=== PATIENT | male | born 1940 | race Caucasian/White ===

== ENCOUNTER 2017-08-10 09:23 | Day surgery (SDC) | payer MEDICARE, OTHER ==
[~2017-08-10] VITALS: Ht 175.3 cm; Wt 117.5 kg
[~2017-08-10 09:23] MED LIST: ASPIRIN EC81 MG PO; AZACITIDINE IV; CARVEDILOL12.5 MG PO; COUMADIN2.5 MG PO; COUMADIN5 MG PO; FISH OIL 1,0001 EAC2 PO; FUROSEMIDE20 MG PO; FUROSEMIDE40 MG PO; GEMFIBROZIL600 MG PO; GLIPIZIDE XL10 MG PO; GLIPIZIDE10 MG PO; GLIPIZIDE5 MG PO; GLUCOPHAGE500 MG PO; HUMULIN N100 UNIT/1 SUB-Q; HUMULIN R100 UNIT/1 INJ; LOSARTAN POTASS50 MG PO; MULTIVITAMINS1 EAC7 PO; NORCO 5-325 TA1 EACH PO; NOVOLIN N100 UNIT/1 SUB-Q; OSTEO BI-FLEX1 EAC2 PO; PRILOSEC OTC20 MG PO; VITAMIN E100 UNI3 PO; WARFARIN SODIU2.5 MG PO; ZOFRAN ODT4 MG PO
--- NOTE | 2017-08-12 12:58 | OR ---
[facility] [address] [place] [address] Signed DATE OF OPERATION: 08/10/2017 SURGEON: Jayce Robertson MD PROCEDURE: Left posterior iliac crest bone marrow biopsy and aspirate. DESCRIPTION OF PROCEDURE: After explaining the risks and benefits of bone marrow biopsy and aspiration under conscious sedation and obtaining informed written consent, the patient was taken to a private area of the postanesthesia recovery unit, where a time-out was taken and the patient and the procedure were correctly identified. He was placed in the prone position. Conscious sedation was supplied by OWEN Guzman with 100 mcg of intravenous fentanyl and 4 mg of intravenous midazolam. The left posterior iliac crest was prepped and draped in the usual sterile manner. Local anesthesia was obtained with 1 mL of 1% lidocaine and the left posterior iliac crest bone marrow biopsy and aspirate were obtained without adverse affects. Jayce Robertson MD RCQ/MODL /[id number] Electronically Signed By: JAYCE ROBERTSON MD 08/12/17 1258 PATIENT NAME: MAILE PARISI OPERATIVE REPORT DATE OF : 44 PHYSICIAN: JAYCE ROBERTSON MD REPORT #: [id number] REPORT IS CONFIDENTIAL AND NOT TO BE RELEASED WITHOUT AUTHORIZATION
== END 2017-08-10 13:20 | disposition home or self-care (01) ==
LOC: DS 09:23 → OPS 09:23 → DS 12:00 → OPS 12:00
PROVIDERS: Specialist
PROC: 07DR3ZX Extraction of Iliac Bone Marrow, Percutaneous Approach, Diagnostic (ICD-10-PCS; principal; 2017-08-10 12:00)
DX: D46.9 Myelodysplastic syndrome, unspecified (principal); D64.9 Anemia, unspecified; D69.6 Thrombocytopenia, unspecified; D75.9 Disease of blood and blood-forming organs, unspecified; I48.91 Unspecified atrial fibrillation; E11.9 Type 2 diabetes mellitus without complications; E78.00 Pure hypercholesterolemia, unspecified; I11.0 Hypertensive heart disease with heart failure; I50.9 Heart failure, unspecified; I35.1 Nonrheumatic aortic (valve) insufficiency; I34.0 Nonrheumatic mitral (valve) insufficiency; I36.1 Nonrheumatic tricuspid (valve) insufficiency; G47.33 Obstructive sleep apnea (adult) (pediatric); J44.9 Chronic obstructive pulmonary disease, unspecified; M19.90 Unspecified osteoarthritis, unspecified site; Z93.0 Tracheostomy status; Z79.899 Other long term (current) drug therapy
CPT/HCPCS: 36415; 85025; 99152; 99153; J2250; J3010; J7120

== ENCOUNTER 2017-11-02 10:56 | Day surgery (SDC) | payer MEDICARE, OTHER ==
[~2017-11-02] VITALS: Ht 175.3 cm; Wt 118.4 kg
[~2017-11-02 10:56] MED LIST changes: -GLIPIZIDE5 MG PO
--- NOTE | 2017-11-02 11:53 | NUR ---
comfortable,iv patent. update given.
--- NOTE | 2017-11-02 12:56 | NUR ---
11/02/17 Ja6 Samantha Newby 1250-PATIENT IN PACU ON 5L 95% NC LAYING PRONE. AROUSES TO VERBAL STIMULI. BANDAID TO LEFT BACK CDI.
[2017-12-06] MEDS ORDERED: JAKAFI15 MG PO (07:56)
[2018-01-18] MEDS ORDERED: GEMFIBROZIL600 MG PO (11:10)
[2018-01-18] MEDS ORDERED: SALMON OIL 1,01 EACH PO (11:11)
[2018-01-18] MEDS ORDERED: FINASTERIDE5 MG PO (11:11)
[2018-01-18] MEDS ORDERED: VITAMIN B122500 MCG PO (11:12)
== END 2017-11-02 13:32 | disposition home or self-care (01) ==
LOC: DS 10:56 → OPS 10:56 → DS 12:00 → OPS 12:00
PROVIDERS: Specialist
PROC: 079T3ZX Drainage of Bone Marrow, Percutaneous Approach, Diagnostic (ICD-10-PCS; 2017-11-02)
PROC: 07DR3ZX Extraction of Iliac Bone Marrow, Percutaneous Approach, Diagnostic (ICD-10-PCS; principal; 2017-11-02 12:00)
DX: D61.818 Other pancytopenia (principal); D69.6 Thrombocytopenia, unspecified; D46.9 Myelodysplastic syndrome, unspecified; I48.91 Unspecified atrial fibrillation; E11.9 Type 2 diabetes mellitus without complications; I08.0 Rheumatic disorders of both mitral and aortic valves; I11.0 Hypertensive heart disease with heart failure; I50.9 Heart failure, unspecified; E78.00 Pure hypercholesterolemia, unspecified; G47.33 Obstructive sleep apnea (adult) (pediatric); M19.90 Unspecified osteoarthritis, unspecified site; J44.9 Chronic obstructive pulmonary disease, unspecified; Z99.89 Dependence on other enabling machines and devices; Z98.890 Other specified postprocedural states; Z79.899 Other long term (current) drug therapy
CPT/HCPCS: 85025; 99152; J2250; J3010; J7120

== ENCOUNTER 2018-02-04 22:29 | Emergency (ER) | payer MEDICARE, OTHER ==
[~2018-02-04] VITALS: Ht 175.3 cm; Wt 112.5 kg
[~2018-02-04 22:29] MED LIST changes: +FINASTERIDE5 MG PO; +JAKAFI15 MG PO; +SALMON OIL 1,01 EACH PO; +VITAMIN B122500 MCG PO
[2018-02-05] MEDS ORDERED: NORCO 5-325 TA1 EACH PO (01:19)
== END 2018-02-05 01:34 | disposition home or self-care (01) ==
LOC: ED 22:29
DX: S30.1XXA Contusion of abdominal wall, initial encounter (principal); I11.0 Hypertensive heart disease with heart failure; I50.9 Heart failure, unspecified; E11.9 Type 2 diabetes mellitus without complications; Z79.01 Long term (current) use of anticoagulants; Z79.84 Long term (current) use of oral hypoglycemic drugs; Z79.899 Other long term (current) drug therapy; X58.XXXA Exposure to other specified factors, initial encounter; Y93.89 Activity, other specified
CPT/HCPCS: 71046; 74177; 80053; 81001; 83690; 85025; 85610; 85730; 99284; Q9967

== ENCOUNTER 2018-02-24 10:29 | Day surgery (SDC) | payer MEDICARE, OTHER ==
[~2018-02-24] VITALS: Ht 175.3 cm; Wt 112.5 kg
--- NOTE | 2018-02-24 12:55 | NUR ---
02/24/18 Ja5 Harmony Rudd 1242 PATIENT PROCEDURE IN PACU, RESUMED CARE FROM DOYLE WEAVER. PATIENT LAYING ON STOMACH SLEEPING, AWAKENS WITH VERBAL STIMULI, DENIES NEEDS THEN BACK TO SLEEP. RESP EVEN AND UNLABORED, NC AT 2 LITERS.
== END 2018-02-24 13:40 | disposition home or self-care (01) ==
LOC: OPS 10:29 → DS 10:29 → OPS 12:00 → DS 12:00 → OPS 13:40
PROVIDERS: Specialist
PROC: 07DR3ZX Extraction of Iliac Bone Marrow, Percutaneous Approach, Diagnostic (ICD-10-PCS; principal; 2018-02-24 12:00)
DX: D64.89 Other specified anemias (principal); D75.81 Myelofibrosis; E11.9 Type 2 diabetes mellitus without complications; E78.00 Pure hypercholesterolemia, unspecified; I11.0 Hypertensive heart disease with heart failure; I50.9 Heart failure, unspecified; I08.3 Combined rheumatic disorders of mitral, aortic and tricuspid valves; G47.33 Obstructive sleep apnea (adult) (pediatric); M19.90 Unspecified osteoarthritis, unspecified site; Z99.89 Dependence on other enabling machines and devices; Z79.899 Other long term (current) drug therapy
CPT/HCPCS: 36415; 85025; 86644; 86850; 86900; 86901; 86920; 99152; 99153; J2250; J3010; J7120; P9040

== ENCOUNTER 2018-05-24 02:50 | Emergency (ER) | payer MEDICARE, OTHER ==
[~2018-05-24] VITALS: Ht 175.3 cm; Wt 106.0 kg
--- OUTSIDE RECORDS SUMMARY | ~2018-05-24 | XMS | Encounter Summary ---
Demographics + + + | Address | [address] | | | [place] [address] | + + + | Home Phone | | + + + | Preferred Language | Unknown | + + + | Marital Status | | + + + | Faith Affiliation | Unknown | + + + | Race | Unknown | + + + | Ethnic Group | Unknown | + + + Author + + + | Author | Sanju Authentium | + + + | Organization | [facility] [employer] [facility] | + + + | Address | Unknown | + + + | Phone | Unavailable | + + + Support + + +---------+ + | Name | Relationship | Address | Phone | + + +---------+ + | Holly Wylie | ECON | Unknown | | + + +---------+ + Care Team Providers + +------+ + | Care Money Counter Name | Role | Phone | + +------+ + | Haylee Walker MD | PCP | | + +------+ + Reason for Visit + + + | Reason | Comments | + + + | Follow-up | 6 month | + + + Encounter Details +--------+---------+ + + + | Date | Type | Department | Care Team | Description | +--------+---------+ + + + | 03/22/ | Office | [facility] | Kelli Becerra, | Coronary artery | | 2018 | Visit | Cardiology [place] | [address] | disease involving | | | | [address] | [address] Becerra, | [place] coronary | | | | [address] | [place] [address] | artery of [place] | | | | [place] [address] | [phone] | heart without angina | | | | [phone] | | pectoris (Primary | | | | | | Dx); Essential | | | | | | hypertension; | | | | | | Paroxysmal atrial | | | | | | fibrillation (HCC); | | | | | | SMITH on CPAP; | | | | | | Myelodysplastic | | | | | | syndrome (HCC) | +--------+---------+ + + + Social History + +-------+ +--------+------+ | Tobacco Use | Types | Packs/Day | Years | Date | | | | | Used | | + +-------+ +--------+------+ | Passive Smoke | | | | | | Exposure - Never | | | | | | Smoker | | | | | + +-------+ +--------+------+ + +---+---+---+ | Smokeless Tobacco: | | | | | Never Used | | | | + +---+---+---+ + + +---------+ + | Alcohol Use | Drinks/We | oz/Week | Comments | | | ek | | | + + +---------+ + | No | 0 | 0.0 | | | | Standard | | | | | drinks or | | | | | | | | | | equivalen | | | | | t | | | + + +---------+ + + + + | Sex Assigned at | Date Recorded | | | | + + + | Not on file | | + + + as of this encounter Last Filed Vital Signs + + + + | Vital Sign | Reading | Time Taken | + + + + | Blood Pressure | 122/60 | 03/22/2018 8:32 AM PDT | + + + + | Pulse | 81 | 03/22/2018 8:32 AM PDT | + + + + | Temperature | - | - | + + + + | Respiratory Rate | - | - | + + + + | Oxygen Saturation | 99% | 03/22/2018 8:32 AM PDT | + + + + | Inhaled Oxygen | - | - | | Concentration | | | + + + + | Weight | 109.6 kg (241 lb | 03/22/2018 8:32 AM PDT | | | 11.2 oz) | | + + + + | Height | 175.3 cm (5' 9") | 03/22/2018 8:32 AM PDT | + + + + | Body Mass Index | 35.69 | 03/22/2018 8:32 AM PDT | + + + + in this encounter Progress Notes Kelli Becerra MD - 03/22/2018 8:45 AM PDTFormatting of this note may be different fro m the original. Date of visit: 03/22/2018 Primary Care Physician: HAYLEE WALKER CHIEF COMPLAINT: Chief Complaint Patient presents with Follow-up 6 month HISTORY OF PRESENT ILLNESS: Ed is 77 y.o. male here for follow-up visit. Has a history of paroxysmal atrial fibrillatio n on anticoagulation with warfarin. Has myelofibrosis syndrome on chemotherapy. Has been monitoring his CBC. Currently have symptoms of shortness of breath, fatigue, weakness. As being on blood transfusion as needed. Limited activity level secondary to his fatigue and tiredness and arthritic and knee pain. Past medical history, SH, FH, and medications were reviewed in the chart. Medications: Outpatient Encounter Prescriptions as of 03/22/2018 Medication Sig Dispense Refill carvedilol (COREG) 12.5 MG tablet Take 12.5 mg by mouth daily. cyanocobalamin 2500 MCG TABS Take by mouth 2 (two) times daily. finasteride (PROSCAR) 5 MG tablet Take 5 mg by mouth daily. gemfibrozil (LOPID) 600 MG tablet Take 600 mg by mouth 2 (two) times daily. glipiZIDE (GLUCOTROL) 10 MG tablet Take 10 mg by mouth 2 (two) times daily. Glucosamine-Chondroitin (OSTEO BI-FLEX REGULAR STRENGTH PO) Take by mouth 2 (two) time s daily. metFORMIN (GLUCOPHAGE) 500 MG tablet Take 500 mg by mouth 2 (two) times daily with meal s. MULTIPLE VITAMIN PO Take by mouth daily. [place]-3 Fatty Acids (EQL FISH OIL) 1000 MG CAPS Take 1,000 mg by mouth daily. [place]-3 Fatty Acids (SALMON OIL PO) Take 1,000 mg by mouth 2 (two) times daily. ruxolitinib (JAKAFI) 15 MG tablet Take 15 mg by mouth 2 (two) times daily. vitamin E 400 UNIT capsule Take 400 Units by mouth 2 (two) times daily. warfarin (COUMADIN) 2.5 MG tablet TAKE ONE TABLET BY MOUTH ONCE DAILY OR DIRECTED BY PHYSICAN 30 tablet 0 warfarin (COUMADIN) 5 MG tablet TAKE ONE TABLET BY MOUTH IN THE EVENING 30 tablet 5 AzaCITIDine (VIDAZA SC) Inject 175 mcg into the skin. 5 days per month ondansetron (ZOFRAN) 8 MG tablet Take 8 mg by mouth every 8 (eight) hours as needed for Nausea. No facility-administered encounter medications on file as of 03/22/2018. Allergies No Known Allergies REVIEW OF SYSTEMS: Constitutional: Fatigue and tiredness. HEENT: Negative for nosebleeds, ear discharge, nasal congestion or soar throat. Eyes: Negative for visual disturbance, redness, or secretion. Respiratory: Negative for cough, sputum production, hemoptysis, wheezing. Cardiovascular: As history of present illness. Gastrointestinal: Negative for nausea, vomiting, diarrhea, abdominal pain and blood in stoo l. Genitourinary: Negative for dysuria or hematuria. Musculoskeletal: Arthritic and knee pain. Skin: Negative for rash. Neurological: Negative for dizziness. No numbness. No recent falls. No slurred speech. Hematological: No significant bruising. Psychiatric/Behavioral: No depression or anxiety. PHYSICAL EXAM Vital Signs: BP 122/60 (BP Location: Left upper arm, Patient Position: Sitting) | Pulse 81 | Ht 1.753 m (5' 9") | Wt 109.6 kg (241 lb 11.2 oz) | SpO2 99% | BMI 35.69 kg/m GENERAL APPEARANCE: Alert, oriented, cooperative, no distress, appears stated age. HEENT: Extraocular movements were intact. No jaundice. Pupiles round and reactive. NECK: No JVD, lymphadenopathy. Carotid upstrokes normal. No carotid bruit heard. CARDIAC: Regular rhythm and rate. There is normal S1 and mildly diminished S2. Systolic murmur in the right upper sternal border consistent with aortic stenosis. Another murmur in the left sternal border. CHEST: Normal bilateral symmetrical chest excursion.ackles or wheezing. No evidence of dull ness. ABDOMEN: Soft.No tenderness or guarding. No palpable organs. Active bowel sounds. EXTREMITIES: No lower extremities edema, cyanosis or clubbing. NEURO: Alert and oriented times three with no focal deficit. Cranial nerves are grossly no rmal. SKIN: Warm and dry. No rash. Psych: Normal affect and mood. DATA 03/22/2018 WBC 7.9, hemoglobin 6.0, platelets 33,000, sodium 139, potassium 4.9, BUN 32, creatinine 1. 39, GFR 50, chloride 107, bicarbonate 23. Calcium 8.9, AST 17, AST 11, alk phos 30. 02/04/2018 WBC 6.1, hemoglobin 7.2, platelets 34, sodium 138, potassium 4.0, chloride 108, bicarbonate 23, BUN 30, creatinine 1.41, GFR 49. Calcium 9.4, AST 17, AST 12, alk phos 30. 08/02/2017 WBC 3.8, hemoglobin 12.2, platelets 71, sodium 142, potassium 4.1, chloride 105, glucose 15 7, BUN 30, creatinine 1.33. AST 19, AST 11, alk phos 37. No results found for: NA, K, CO2, BUN, CREATININE, GLUCOSE, CALCIUM, MG No results found for: WBC, HGB, HCT, MCV, PLT No results found for: CHOL, TRIG, HDL, LDL, GLUF, HGBA1C, TSH EC08/03/2017 Ordered and reviewed by myself showed normal sinus rhythm, left axis deviation otherwise no rmal EKG. Last Cath, 02/13/2010: RA: 4mmHg, RV: 25/7, PAP: 27/13 (19), PCWP: 7, no LVG, low grade disease LAD. Last Echo:12/02/2016: Normal LV size and function EF 60-65%. Grade 1 diastolic dysfunction. Normal RV size and function. Severely enlarged left atrium. Severe calcification of the aor tic valve with moderate aortic stenosis by 2-D and planimetry. Mean gradient of 16 mmHg. Dilated ascending aorta and root measuring up to 4.6 cm. ECHO: 12/30/2015 ([facility]): mild concentric LVH, biplane LVEF 68%, moderate LAE, Ao-root 43mm, mild anson cific (calc DERRICK 1.5cm2, peak/mean gradients 29/16mmHg), mild MR, mild TR, trace PI, est s ystolic PAP 23-28mmHg. Last stress test, 02/16/2016 ([facility]): Lexiscan, perfusion images benign, LVEF 51%. ASSESSMENT: Patient is 77 y.o. male with complex past medical history. Echocardiogram and prior notes. Reviewed patient's blood work. 1. Paroxysmal atrial fibrillation currently in sinus rhythm. On anticoagulation with warfar in. 2. Pancytopenia secondary to myelodysplastic syndrome. 3. Severe thrombocytopenia. 4. Chronic kidney disease stage III. 5. Hypertension currently blood pressures controlled. 6. Moderate aortic stenosis. No signs of congestive heart failure. 7. Preserved ejection fraction. 8. Myelodysplastic syndrome. Previously required chemotherapy and patient had to go off war [facility] where he had to be transfused. 9. Obstructive sleep apnea on CPAP. Plan: Patient has been complaining of shortness breath, fatigue and tiredness all those on multif actorial especially in the view of severe anemia. Discussed with the patient stopping warfarin especially in the view of multiple transfusion s. Discussed low-dose aspirin 81 milligram again that should be monitored as well and the view of severe thrombocytopenia. We will discuss the prognosis of the patient, may consider watchman device if the patient i s a candidate. Continue to monitor his symptoms in regards of any signs of volume overload or congestive h eart failure. We will continue with carvedilol 12.5 bid. Would have recommended adding low-dose GLYNN inhibitor or ARB, however given patient possible relapse of myelodysplastic syndrome and impaired kidney function will continue to monitor h is vitals blood pressure. Patient lost almost 18 pounds since prior evaluation. Follow-up in 6 months or earlier if needed. *This report has been prepared using a voice recognition system. The report was reviewed fo r accuracy, however, sound-alike word errors, addition and/or deletions may occur. If there is any question about this report please contact me. 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
--- OUTSIDE RECORDS SUMMARY | ~2018-05-24 | XMS | Encounter Summary ---
Demographics + + + | Address | [address] | | | [place] [address] | + + + | Home Phone | | + + + | Preferred Language | Unknown | + + + | Marital Status | | + + + | Protestant Affiliation | Unknown | + + + | Race | Unknown | + + + | Ethnic Group | Unknown | + + + Author + + + | Author | Sanju [employer] | + + + | Organization | [facility] [employer] [facility] | + + + | Address | Unknown | + + + | Phone | Unavailable | + + + Support + + +---------+ + | Name | Relationship | Address | Phone | + + +---------+ + | Holly Wylie | ECON | Unknown | | + + +---------+ + Care Team Providers + +------+ + | Care Air Analysis Technician Name | Role | Phone | + +------+ + | Bright Walker MD | PCP | | + +------+ + Reason for Visit + + + | Reason | Comments | + + + | Labs Only | | + + + Encounter Details +--------+ + + + + | Date | Type | Department | Care Team | Description | +--------+ + + + + | 03/22/ | Documentati | [facility] | Alley Schilling | Labs Only | | 2018 | on Only | Cardiology [place] | LUZMARIA Higgins | | | | | [address] | | | | | | [facility] [address] | | | | | | [place] [address] | | | | | | [phone] | | | +--------+ + + + + Social History + +-------+ [...] + + + as of this encounter Plan of Treatment +--------+---------+ + + + | Date | Type | Specialty | Care Team | Description | +--------+---------+ + + + | 10/11/ | Office | Cardiology | Kelli Gabriel, | | | 2019 | Visit | | MD Dmitriy Barnett | | | | | | Dr Becerra, | | | | | | [place] [address] | | | | | | [phone] | | | | | | | | +--------+---------+ + + + as of this encounter Visit Diagnoses Not on filein this encounter"
--- OUTSIDE RECORDS SUMMARY | ~2018-05-24 | XMS | Encounter Summary ---
Demographics + + + | Address | [address] | | | [place] [address] | + + + | Home Phone | | + + + | Preferred Language | Unknown | + + + | Marital Status | | + + + | Mosque Affiliation | Unknown | + + + | Race | Unknown | + + + | Ethnic Group | Unknown | + + + Author + + + | Author | Sanju RisparmioSuper | + + + | Organization | [facility] [employer] [facility] | + + + | Address | Unknown | + + + | Phone | Unavailable | + + + Support + + +---------+ + | Name | Relationship | Address | Phone | + + +---------+ + | Holly Wylie | ECON | Unknown | | + + +---------+ + Care Team Providers + +------+ + | Care Billing Machine Operator Name | Role | Phone | + [...] + + | 03/22/ | Office | [facility] | Kelli Becerra, | Coronary artery | | 2018 | Visit | Cardiology [place] | [address] | disease involving | | | | [address] | [address] Becerra, | [place] coronary | | | | [address] | [place] [address] | artery of [place] | | | | [place] [address] | [phone] | heart without angina | | | | [phone] | | pectoris (Primary | | | [...] MULTIPLE VITAMIN PO Take by mouth daily. [place]-3 Fatty Acids (EQL FISH OIL) 1000 MG CAPS Take 1,000 mg by mouth daily. [place]-3 Fatty Acids (SALMON OIL PO) Take 1,000 [...] and patient had to go off war [facility] where he had to be transfused. 9. [...] | | | | | | [place] [address] | | | | | | [phone] | | | | | | | | +--------+---------+ + + + as of this encounter Visit Diagnoses + + | Diagnosis | + + | Coronary artery disease involving [place] coronary artery of [place] heart without angina | | pectoris - [...]
--- OUTSIDE RECORDS SUMMARY | ~2018-05-24 | XMS | Encounter Summary ---
Demographics + + + | Address | [address] | | | [place] [address] | + + + | Home Phone | | + + + | Preferred Language | Unknown | + + + | Marital Status | | + + + | Uatsdin Affiliation | Unknown | + + + | Race | Unknown | + + + | Ethnic Group | Unknown | + + + Author + + + | Author | Sanju [employer]mutable | + + + | Organization | [facility] [employer] [facility] | + + + | Address | Unknown | + + + | Phone | Unavailable | + + + Support + + +---------+ + | Name | Relationship | Address | Phone | + + +---------+ + | Holly Wylie | ECON | Unknown | | + + +---------+ + Care Team Providers + +------+ + | Care Directory Carrier Name | Role | Phone | + [...] | +--------+ + + + + | 03/13/ | Documentati | [facility] | Alley Schilling | Labs Only | | 2018 | on Only | Cardiology Carole Higgins CMA | | | | | [address] | | | | | | [place] | | | | | | [address] | | | | | | [phone] | | | +--------+ + + + [...] | | | | | | [place] [address] | | | | | | [phone] | | | | | | | | +--------+---------+ + + + as of this encounter Visit Diagnoses Not on filein this encounter"
--- OUTSIDE RECORDS SUMMARY | ~2018-05-24 | XMS | Clinical Summary ---
Demographics + + + | Address | [address] | | | [place] [address] | + + + | Home Phone | | + + + | Preferred Language | Unknown | + + + | Marital Status | | + + + | Congregation Affiliation | Unknown | + + + | Race | Unknown | + + + | Ethnic Group | Unknown | + + + Author + + + | Author | [facility] | | | and [place] | + + + | Organization | [facility] | | | and [place] | + + + | Address | Unknown | + + + | Phone | Unavailable | + + + Support + + + + + | Name | Relationship | Address | Phone | + + + + + | Holly Wylie | ECON | [address] | | | | | [place] | | | | | [address] | | + + + + + Care Team Providers + +------+ + | Care Agent Licensing Clerk Name | Role | Phone | + +------+ + | Bright Walker MD | PP | | + +------+ + Allergies No Known Allergies Current Medications + + +-------+---------+------+------+-------+ | Prescription | Sig. | Disp. | Refills | Star | End | Statu | | | | | | t | Date | s | | | | | | Date | | | + + +-------+---------+------+------+-------+ | carvedilol (COREG) | Take 12.5 mg by | | | | | Activ | | 12.5 mg tablet | mouth 2 times daily | | | | | e | | | (with breakfast & | | | | | | | | dinner). | | | | | | + + +-------+---------+------+------+-------+ | insulin NPH | Inject 20 Units | | | | | Activ | | (HUMULIN N, NOVOLIN | under the skin 2 | | | | | e | | N) 100 units/mL | times daily (before | | | | | | | injection | meals). | | | | | | + + +-------+---------+------+------+-------+ | | Take by mouth. 2 | | | | | Activ | | Glucosamine-Chondroi | tabs once a day. | | | | | e | | tin (OSTEO BI-FLEX | | | | | | | | REGULAR STRENGTH) | | | | | | | | 250-200 MG TABS | | | | | | | + + +-------+---------+------+------+-------+ | Multiple | Take 1 tablet by | | | | | Activ | | Vitamins-Minerals | mouth Daily. | | | | | e | | (MULTIVITAMIN ADULT | | | | | | | | PO) | | | | | | | + + +-------+---------+------+------+-------+ | azaCITIDine | Inject as directed. | | | | | Activ | | (VIDAZA) 10 mg/mL | | | | | | e | | SUSR | | | | | | | + + +-------+---------+------+------+-------+ | gemfibrozil | Take 600 mg by mouth | | | | | Activ | | (LOPID) 600 mg | 2 times daily | | | | | e | | tablet | (before meals). | | | | | | + + +-------+---------+------+------+-------+ | ondansetron | Take 4 mg by mouth | | | | | Activ | | (ZOFRAN ODT) 4 mg | every 8 hours as | | | | | e | | disintegrating | needed for Nausea. | | | | | | | tablet | | | | | | | + + +-------+---------+------+------+-------+ | omeprazole | Take 20 mg by mouth | | | | | Activ | | (PRILOSEC) 20 mg | as needed. | | | | | e | | capsule | | | | | | | + + +-------+---------+------+------+-------+ Active Problems + + + | Problem | Noted Date | + + + | SMITH on CPAP | 06/17/2016 | + + + | Myelodysplastic syndrome (HCC) | 06/17/2016 | + + + | Chronic cough | 08/15/2013 | + + + | SOB (shortness of breath) | 08/15/2013 | + + + Family History + + +------+ + | Medical History | Relation | Name | Comments | + + +------+ + | Diabetes | Father | | | + + +------+ + | Diabetes | Mother | | | + + +------+ + + +------+--------+ + | Relation | Name | Status | Comments | + +------+--------+ + | Father | | | | + +------+--------+ + | Mother | | | | + +------+--------+ + Social History + +-------+ +--------+------+ | Tobacco Use | Types | Packs/Day | Years | Date | | | | | Used | | + +-------+ +--------+------+ | Never Smoker | | | | | + +-------+ +--------+------+ + + + | Sex Assigned at | Date Recorded | | | | + + + | Not on file | | + + + Last Filed Vital Signs + + + + | Vital Sign | Reading | Time Taken | + + + + | Blood Pressure | 138/62 | 08/24/2017 1425 PST | + + + + | Pulse | 74 | 08/24/2017 1425 PST | + + + + | Temperature | - | - | + + + + | Respiratory Rate | 16 | 08/24/20171424 PST | + + + + | Oxygen Saturation | 95% | 08/24/20171424 PST | + + + + | Inhaled Oxygen | - | - | | Concentration | | | + + + + | Weight | 117.1 kg (258 lb 2.5 | 08/24/20171424 PST | | | oz) | | + + + + | Height | 174 cm (5' 8.5") | 06/17/2016 0945 PDT | + + + + | Body Mass Index | 38.68 | 08/24/2017 1425 PST | + + + + Plan of Treatment +--------+---------+ + + + | Date | Type | Specialty | Care Team | Description | +--------+---------+ + + + | 07/12/ | Office | | Yaya Narayanan PA | | | 2018 | Visit | | [address] | | | | | | [place] | | | | | | [address] | | | | | | | | +--------+---------+ + + + + + + + + | Health Maintenance | Due Date | Last Done | Comments | + + + + + | Vaccine: | | | | | Dtap/Tdap/Td (1 - | 2 | | | | Tdap) | | | | + + + + + | Colorectal Cancer | | | | | Screening | 3 | | | | (Colonoscopy) | | | | + + + + + | Vaccine: Zoster (1 | | | | | of 2) | 3 | | | + + + + + | Vaccine: | | | | | Pneumococcal 65+ | 8 | | | | Low/Medium Risk (1 | | | | | of 2 - PCV13) | | | | + + + + + | Vaccine: Influenza | | | | | (#1) | 8 | | | + + + + + Results Not on filefrom Last 3 Months Insurance + +--------+ +--------+ +---------+ | Payer | Benefi | Subscriber | Type | Phone | Address | | | t Plan | ID | | | | | | / | | | | | | | Group | | | | | + +--------+ +--------+ +---------+ | MEDICARE | MEDICA | [id number] | Medica | [phone] | | | | RE | | re | [phone] | | | | PART A | | | | | | | AND B | | | | | + +--------+ +--------+ +---------+ | MEDICARE SUPPLEMENT | MEDICA | [id number] | Indemn | +1- | | | OTHER | RE | | ity | [phone] | | | | SUPPLE | | | | | | | MENT | | | | | | | OTHER | | | | | + +--------+ +--------+ +---------+ + +--------+ +--------+ + + | Guarantor Name | Accoun | Relation to | Date | Phone | Billing Address | | | t Type | Patient | of | | | | | | | | | | + +--------+ +--------+ + + | ALAN WYLIE | Person | Self [birth year] | Work: | [address] | | | al/[place] | | 1941 | [phone] | [place] | | | [place] | | | [address] Home: | [address] | | | | | | | | | | | | | [phone] | | | | | | | [address] | | + +--------+ +--------+ + +
--- OUTSIDE RECORDS SUMMARY | ~2018-05-24 | XMS | Clinical Summary ---
Demographics + + + | Address | [address] | | | [place] [address] | + + + | Home Phone | | + + + | Preferred Language | Unknown | + + + | Marital Status | | + + + | Spiritism Affiliation | Unknown | + + + | Race | Unknown | + + + | Ethnic Group | Unknown | + + + Author + + + | Author | [facility] | + + + | Organization | [facility] | + + + | Address | Unknown | + + + | Phone | Unavailable | + + + Support + + +---------+ + | Name | Relationship | Address | Phone | + + +---------+ + | Holly Wylie | ECON | Unknown | | + + +---------+ + Care Team Providers + +------+ + | Care Pinion Polisher Name | Role | Phone | + +------+ + | Bright Walker MD | PP | | + +------+ + Allergies No Known Allergies Current Medications + + +--------+---------+------+------+-------+ | Prescription | Sig. | Disp. | Refills | Star | End | Statu | | | | | | t | Date | s | | | | | | Date | | | + + +--------+---------+------+------+-------+ | | Take by mouth 2 | | | | | Activ | | Glucosamine-Chondroi | (two) times daily. | | | | | e | | tin (OSTEO BI-FLEX | | | | | | | | REGULAR STRENGTH PO) | | | | | | | + + +--------+---------+------+------+-------+ | [place]-3 Fatty | Take 1,000 mg by | | | | | Activ | | Acids (EQL FISH OIL) | mouth daily. | | | | | e | | 1000 MG CAPS | | | | | | | + + +--------+---------+------+------+-------+ | MULTIPLE VITAMIN | Take by mouth | | | | | Activ | | PO | daily. | | | | | e | + + +--------+---------+------+------+-------+ | carvedilol (COREG) | Take 12.5 mg by | | | | | Activ | | 12.5 MG tablet | mouth daily. | | | | | e | + + +--------+---------+------+------+-------+ | vitamin E 400 UNIT | Take 400 Units by | | | | | Activ | | capsule | mouth 2 (two) times | | | | | e | | | daily. | | | | | | + + +--------+---------+------+------+-------+ | cyanocobalamin | Take by mouth 2 | | | | | Activ | | 2500 MCG TABS | (two) times daily. | | | | | e | + + +--------+---------+------+------+-------+ | ondansetron | Take 8 mg by mouth | | | | | Activ | | (ZOFRAN) 8 MG tablet | every 8 (eight) | | | | | e | | | hours as needed for | | | | | | | | Nausea. | | | | | | + + +--------+---------+------+------+-------+ | metFORMIN | Take 500 mg by mouth | | | | | Activ | | (GLUCOPHAGE) 500 MG | 2 (two) times daily | | | | | e | | tablet | with meals. | | | | | | + + +--------+---------+------+------+-------+ | glipiZIDE | Take 10 mg by mouth | | | 10/1 | | Activ | | (GLUCOTROL) 10 MG | 2 (two) times daily. | | | 2/20 | | e | | tablet | | | | 17 | | | + + +--------+---------+------+------+-------+ | gemfibrozil | Take 600 mg by mouth | | | | | Activ | | (LOPID) 600 MG | 2 (two) times | | | | | e | | tablet | daily. | | | | | | + + +--------+---------+------+------+-------+ | ruxolitinib | Take 15 mg by mouth | | | | | Activ | | (JAKAFI) 15 MG | 2 (two) times daily. | | | | | e | | tablet | | | | | | | + + +--------+---------+------+------+-------+ | finasteride | Take 5 mg by mouth | | | | | Activ | | (PROSCAR) 5 MG | daily. | | | | | e | | tablet | | | | | | | + + +--------+---------+------+------+-------+ | [place]-3 Fatty | Take 1,000 mg by | | | | | Activ | | Acids (SALMON OIL | mouth 2 (two) times | | | | | e | | PO) | daily. | | | | | | + + +--------+---------+------+------+-------+ | aspirin 81 MG | Take 1 tablet by | 30 | 11 | 02/25 | 02/25 | Activ | | tablet | mouth daily. | tablet | | 04/14 | 04/14 | e | | | | | | 18 | 19 | | + + +--------+---------+------+------+-------+ Active Problems + + + | Problem | Noted Date | + + + | Myelodysplastic syndrome (HCC) | 09/01/2016 | + + + + + | Last Assessment & Plan: Myelodysplastic syndrome, followed by | | Dr. Mcarthur. Patient is undergoing chemotherapy, I spoke | | with Dr. Mcarthur today, response has been good, the last 2 | | months he's been free of transfusions. | + + + + + | SMITH on CPAP | 06/17/2016 | + + + | Paroxysmal atrial fibrillation (HCC) | 12/29/2015 | + + + + + | Last Assessment & Plan: Paroxysmal atrial fibrillation, | | CHADS2 Score 3 (CHF, HTN, DM), and have asked him to resume his | | warfarin today now the platelets and red blood cell count | | stabilized. He will follow-up with the Coumadin clinic, and I | | have asked him to check with him on warfarin dose that he should | | resume. Heart rate relatively well controlled, Denies any new | | visual disturbances, dysarthria, dysphasia, lateralizing signs or | | symptoms. No bruising, no bleeding. | + + + + + | CAD (coronary artery disease) | 12/20/2013 | + + + + + | Last Assessment & Plan: Low grade CAD, LVEF 50%. 75yo WM, | | here today in follow-up and also discuss whether or not he | | should resume Coumadin therapy. 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 He developed | | pancytopenia and has been seeing Dr. Mcarthur who has treated | | him with chemotherapy 3 times per week which is to continue for 2 | | years. His bone marrow is recovering and I went and spoke to | | Dr. Mcarthur who feels that he is now stable enough to resume | | his Coumadin therapy for his atrial fibrillation. I reviewed his | | recent platelet count which was 193. He has received 12 blood | | transfusion since February, but none in the last 2 months and his | | hemoglobin and hematocrit have stabilized. From a cardiac | | standpoint, he reports no chest pain, palpitations, or syncope. | | He also reports no signs or symptoms of stroke, such as changes | | in vision, motor function, cognitive functioning, or sensation. | | He reports that as his platelet and RBC count has increased, so | | has his stamina and he is feeling much better. I told him to | | resume his Coumadin and to stop by the Coumadin clinic on his way | | out so that he knows what dose to resume. If he has any | | problems with bleeding, Coumadin will again have to be stopped.. | | I have also asked him to continue to increase his daily | | exercise, as this will help him feel better. His blood pressure | | with more elevated today, and if it's still elevated when he is | | seen back, we may need to adjust his blood pressure medications. | | I have asked him to come back in 3 months and follow-up with our | | nurse practitioner, Daiana Gilman, whom he met today.Hx | | CABG: noHx PCI/stent: noHx Pacemaker/ICD: noLast Cath, 02/13/2010: | | RA: 4mmHg, RV: 25/7, PAP: 27/13 (19), PCWP: 7, no LVG, low grade | | disease LAD.Last Echo, 12/30/2015 ([facility]): mild concentric | | LVH, biplane LVEF 68%, moderate LAE, Ao-root 43mm, mild calcific | | (calc DRERICK 1.5cm2, peak/mean gradients 29/16mmHg), mild MR, | | mild TR, trace PI, est systolic PAP 23-28mmHg.Last stress test, | | 02/16/2016 ([facility]): Lexiscan, perfusion images benign, LVEF | | 51%.ECG, 03/01/2016: NSR, 85bpm. | + + + + + | Essential hypertension | 12/20/2013 | + + + + + | Last Assessment & Plan: Hypertension, controlled, continue | | current meds at current dose (carvedilol, furosemide, losartan). | + + + + + | VHD (valvular heart disease) | 12/20/2013 | + + + + + | Last Assessment & Plan: Mild , mild MR, mild TR.Last Echo, | | 12/30/2015 ([facility]): mild concentric LVH, biplane LVEF 68%, | | moderate LAE, Ao-root 43mm, mild calcific (calc DERRICK 1.5cm2, | | peak/mean gradients 29/16mmHg), mild MR, mild TR, trace PI, est | | systolic PAP 23-28mmHg. | + + + + + | Hyperlipidemia | 12/20/2013 | + + + + + | Last Assessment & Plan: Hyperlipidemia, continue current meds | | at current dose (gemfibrozil). | + + + + + | Diabetes mellitus, type II | 12/20/2013 | + + + + + | Last Assessment & Plan: DM2, managed by [facility].Lab, 08/31/2016: | | HgbA1c: 7.1, Liver enzymes NML, K: 4.1, BUN/Cr: 32/1.2 (GFR 61), | | glu: 175 | + + Encounters +--------+ + + + + | Date | Type | Specialty | Care Team | Description | +--------+ + + + + | 03/22/ | Office | | Kelli Gabriel, | Coronary artery | | 2018 | Visit | | MD | disease involving | | | | | | [place] coronary | | | | | | artery of [place] | | | | | | heart without angina | | | | | | pectoris (Primary | | | | | | Dx); Essential | | | | | | hypertension; | | | | | | Paroxysmal atrial | | | | | | fibrillation (HCC); | | | | | | SMITH on CPAP; | | | | | | Myelodysplastic | | | | | | syndrome (HCC) | +--------+ + + + + | 03/22/ | Documentati | | Alley Schilling | Labs Only | | 2018 | on Only | | J, AVIATION OPERATIONS SPECIALIST | | +--------+ + + + + | 03/13/ | Documentati | | Alley Schilling | Labs Only | | 2017 | on Only | | J, AVIATION OPERATIONS SPECIALIST | | +--------+ + + + + from Last 3 Months Family History + + +------+ + | Medical History | Relation | Name | Comments | + + +------+ + | Diabetes type II | Mother | | | + + +------+ + + +------+ + + | Relation | Name | Status | Comments | + +------+ + + | Father | | | unknown status | | | | (Age | | | | | 81) | | + +------+ + + | Maternal Grandfather | | | | + +------+ + + | Maternal Grandmother | | | DMII, liver cancer | + +------+ + + | Mother | | | DMII | | | | (Age | | | | | 87) | | + +------+ + + Social History + +-------+ +--------+------+ [...] + + + | Respiratory Rate | 20 | 09/01/2016 1:31 PM PST | + + + + | [...] AM PDT | + + + + Plan of Treatment +--------+---------+ + + + | Date | Type | Specialty | Care Team | Description | +--------+---------+ + + + | 10/11/ | Office | | Kelli Gabriel, | | | 2018 | Visit | | MD Dmitriy Barnett | | | | | | Dr Becerra, | | | | | | [place] [address] | | | | | | [phone] | | | | | | | | +--------+---------+ + + + + + + + + | Health Maintenance | Due Date | Last Done | Comments | + + + + + | Diabetic Eye Exam | | | | | | 3 | | | + + + + + | Diabetic Foot Exam | | | | | | 3 | | | + + + + + | Hemoglobin A1c | | | | | | 3 | | | + + + + + | Microalbumin | | | | | Screening | 3 | | | + + + + + | Vaccine: | | | | | Dtap/Tdap/Td (1 - | 2 | | | | Tdap) | | | | + + + + + | Colon Cancer | | | | | Screening [...] | + + + + + | Statin Therapy | | | | | (optimal intensity) | 6 | | | + + + + + | Vaccine: Influenza | | | | | (#1) | 8 | | | + + + + + Results Not on filefrom Last 3 Months Insurance + +--------+ +------+-------+ + | Payer | Benefi | Subscriber | Type | Phone | Address | | | t Plan | ID | | | | | | / | | | | | | | Group | | | | | + +--------+ +------+-------+ + | MEDICARE | MEDICA | [id number] | | | [address] | | | RE | | | | [place] [id number] | | | IP-OP | | | | | + +--------+ +------+-------+ + | COMMERCIAL OTHER | COMMER | [id number] | | | | | | CIAL | | | | | | | GENERI | | | | | | | C PLAN | | | | | + +--------+ +------+-------+ + + +--------+ +--------+ + + | Guarantor Name | Accoun | Relation to | Date | Phone | Billing Address | | | t Type | Patient | of | | | | | | | | | | + +--------+ +--------+ + + | ALAN WYLIE | Person | Self [birth year] | Home: | [address] | | | al/Fam | | 1941 | [phone] | [place] | | | [place] | | | [phone] | [address] | + +--------+ +--------+ + +
--- OUTSIDE RECORDS SUMMARY | ~2018-05-24 | XMS | Clinical Summary ---
Demographics + + + | Address | [address] | | | [place] [address] | + + + | Home Phone | | + + + | Preferred Language | Unknown | + + + | Marital Status | | + + + | Lutheran Affiliation | Unknown | + + + | Race | Unknown | + + + | Ethnic Group | Unknown | + + + Author + + + | Author | [facility] | + + + | Organization | [facility] | + + + | Address | Unknown | + + + | Phone | Unavailable | + + + Support + + +---------+ + | Name | Relationship | Address | Phone | + + +---------+ + | Holly Wylie | ECON | Unknown | | + + +---------+ + Care Team Providers + +------+ + | Care Tappet Adjuster Name | Role | Phone | + [...] | | | + + +--------+---------+------+------+-------+ | [place]-3 Fatty | Take 1,000 mg by | [...] | | | + + +--------+---------+------+------+-------+ | [place]-3 Fatty | Take 1,000 mg by | [...] Ao-root 43mm, mild calcific | | (calc DERRICK 1.5cm2, peak/mean gradients 29/16mmHg), mild MR, | [...] involving | | | | | | [place] coronary | | | | | | artery of [place] | | | | | | heart [...] 2018 | on Only | | J, PARALLEL COMPUTING SOFTWARE ENGINEER | | +--------+ + + + + | 03/13/ | Documentati | | Alley Schilling | Labs Only | | 2017 | on Only | | J, PARALLEL COMPUTING SOFTWARE ENGINEER | | +--------+ + + + + [...] | | | | | | [place] [address] | | | | | | [phone] | | | | | | | [...] +------+-------+ + | MEDICARE | MEDICA | [id number] | | | [address] | | | RE | | | | [place] [id number] | | | IP-OP | | | | | + +--------+ +------+-------+ + | COMMERCIAL OTHER | COMMER | [id number] | | | | | | CIAL [...] | Self | [birth year] | Home: | [address] | | | al/Fam | | 1941 | [phone] | [place] | | | [place] | | | [phone] | [address] | + +--------+ +--------+ + +
--- OUTSIDE RECORDS SUMMARY | ~2018-05-24 | XMS | Clinical Summary ---
Demographics + + + | Address | [address] | | | [place] [address] | + + + | Home Phone | | + + + | Preferred Language | Unknown | + + + | Marital Status | | + + + | Cheondoism Affiliation | Unknown | + + + | Race | Unknown | + + + | Ethnic Group | Unknown | + + + Author + + + | Author | [facility] | | | and [place] | + + + | Organization | [facility] | | | and [place] | + + + | Address | Unknown | + + + | Phone | Unavailable | + + + Support + + + + + | Name | Relationship | Address | Phone | + + + + + | Holly Wylie | ECON | [address] | | | | | [place] | | | | | [address] | | + + + + + Care Team Providers + +------+ + | Care Make Up Man Name | Role | Phone | + [...] 2018 | Visit | | [address] | | | | | | [place] | | | | | | [address] | | | | | | | [...] +--------+ +---------+ | MEDICARE | MEDICA | [id number] | Medica | [phone] | | | | RE | | re | [phone] | | | | PART A | | | | | | | AND B | | | | | + +--------+ +--------+ +---------+ | MEDICARE SUPPLEMENT | MEDICA | [id number] | Indemn | +1- | | | [...] | Self | [birth year] | Work: | [address] | | | al/[place]ma | | 1941 | [phone] | [place] | | | [place] | | | [address] Home: | [address] | | | | | | | | | | | | | [phone] | | | | | | | [phone] | | + +--------+ +--------+ + +
--- OUTSIDE RECORDS SUMMARY | ~2018-05-24 | XMS | Encounter Summary ---
Demographics + + + | Address | [address] | | | [place] [address] | + + + | Home Phone | | + + + | Preferred Language | Unknown | + + + | Marital Status | | + + + | Sabianism Affiliation | Unknown | + + + | Race | Unknown | + + + | Ethnic Group | Unknown | + + + Author + + + | Author | [facility] | + + + | Organization | [facility] | + + + | Address | Unknown | + + + | Phone | Unavailable | + + + Support + + +---------+ + | Name | Relationship | Address | Phone | + + +---------+ + | Holly Wylie | ECON | Unknown | | + + +---------+ + Care Team Providers + +------+ + | Care Cloth Tester Name | Role | Phone | + [...] [place] | | | | | | [address] | | | | | | [phone] | | | +--------+ + + + [...] | | | | | | [place] [address] | | | | | | [phone] | | | | | | | | +--------+---------+ + + + as of this encounter Visit Diagnoses Not on filein this encounter"
--- OUTSIDE RECORDS SUMMARY | ~2018-05-24 | XMS | Encounter Summary ---
Demographics + + + | Address | [address] | | | [place] [address] | + + + | Home Phone | | + + + | Preferred Language | Unknown | + + + | Marital Status | | + + + | Advent Affiliation | Unknown | + + + | Race | Unknown | + + + | Ethnic Group | Unknown | + + + Author + + + | Author | Sanju Talkray | + + + | Organization | [facility] | + + + | Address | Unknown | + + + | Phone | Unavailable | + + + Support + + +---------+ + | Name | Relationship | Address | Phone | + + +---------+ + | Holly Wylie | ECON | Unknown | | + + +---------+ + Care Team Providers + +------+ + | Care Heddle Machine Operator Name | Role | Phone [...] Mercedes | | | | | | [facility] [address] | | | | | | [place] [address] | | | | | | [phone] | | | +--------+ + + + [...] | | | | | | [place] [address] | | | | | | [phone] | | | | | | | | +--------+---------+ + + + as of this encounter Visit Diagnoses Not on filein this encounter"
[~2018-05-24 02:50] MED LIST changes: +BAYER CHEWABLE81 MG PO; +FLOMAX0.4 MG PO
--- NOTE | 2018-05-24 16:34 | EKG ---
[facility] [address] [facility] [place] [address] Signed Sinus rhythm with fusion complexes Nonspecific ST abnormality Abnormal ECG No previous ECGs available Confirmed by MARVEL RENTERIA MD ([id number]) on 05/24/2018 4:34:06 PM Electronically Signed By: MARVEL RENTERIA MD 05/24/18 1634 PATIENT NAME: AILINMAILE Electrocardiogram DATE OF : 44 PHYSICIAN: MARVEL RENTERIA MD REPORT #: [id number] REPORT IS CONFIDENTIAL AND NOT TO BE RELEASED WITHOUT AUTHORIZATION
--- NOTE | 2018-05-24 16:34 | EKG ---
[facility] [address] [facility] [place], [place] [address] Signed Normal sinus rhythm Nonspecific ST and T wave abnormality Prolonged QT Abnormal ECG When compared with ECG of 24-MAY-2018 02:53, (Unconfirmed) fusion complexes are no longer present Nonspecific T wave abnormality, worse in Lateral leads Confirmed by MARVEL RENTERIA MD ([id number]) on 05/24/2018 4:34:17 PM Electronically Signed By: MARVEL RENTERIA MD 05/24/18 1634 PATIENT NAME: AILINMAILE Electrocardiogram DATE OF : 44 PHYSICIAN: MARVEL RENTERIA MD REPORT #: [id number] REPORT IS CONFIDENTIAL AND NOT TO BE RELEASED WITHOUT AUTHORIZATION
== END 2018-05-24 05:37 | disposition short-term general hospital (02) ==
LOC: ED 02:50
PROC: 30233H1 Transfusion of Nonautologous Whole Blood into Peripheral Vein, Percutaneous Approach (ICD-10-PCS; principal; 2018-05-24)
DX: R07.9 Chest pain, unspecified (principal); K92.2 Gastrointestinal hemorrhage, unspecified; J44.9 Chronic obstructive pulmonary disease, unspecified; I11.0 Hypertensive heart disease with heart failure; I50.9 Heart failure, unspecified; I48.91 Unspecified atrial fibrillation; E11.9 Type 2 diabetes mellitus without complications; Z79.899 Other long term (current) drug therapy; Z79.82 Long term (current) use of aspirin
CPT/HCPCS: 36430; 71045; 80053; 84484; 85025; 85610; 85730; 86850; 86900; 86901; 86920; 93005; 93010; 96374; 99285; J1200